=== PATIENT | male | born 1945 | race Caucasian/White ===

== ENCOUNTER 2017-06-08 07:30 | Day surgery (SDC) | payer BC ==
[2017-06-07 13:40] VITALS: BMI 29.5
[2017-06-08] MEDS: CIPROFLOXACIN 0.3% EYE DROPS 5 ML BOTTLE ONE ×3 (07:55→08:05)
[2017-06-08] MEDS: PHENYLEPHRINE 2.5% OPHTH SOLN 15 ML BOTTLE ONE ×3 (07:55→08:05)
[2017-06-08] MEDS: CYCLOPENTOLATE 2% OPHTH SOLN 2 ML BOTTLE ONE ×3 (07:55→08:05)
[2017-06-08] MEDS: TROPICAMIDE 1% OPHTH SOLN 15 ML BOTTLE ONE ×3 (07:55→08:05)
[2017-06-08] MEDS ORDERED: MIDAZOLAM HCL 2 MG/2 ML SINGLE DOSE VIAL ONE ×2 (08:45→09:10)
[2017-06-08 09:43] VITALS: TEMP 98.4
[2017-06-08 10:08] VITALS: BP 133/74; PULSE 74
[2017-06-08] MEDS ORDERED: ONDANSETRON 4 MG/2 ML VIAL IVPUSH PRN (15:48)
[2017-06-08] MEDS ORDERED: ACETAMINOPHEN 325 MG TABLET (FP) PO PRN (15:48)
[2017-06-08] MEDS ORDERED: LACTATED RINGERS SOLUTION 1,000 ML IV SCH (16:00)
== END 2017-06-08 10:10 | disposition home or self-care (01) ==
LOC: FASU 07:30
PROVIDERS: ATTEND Ophthalmology
PROC: 08RK3JZ Replacement of Left Lens with Synthetic Substitute, Percutaneous Approach (ICD-10-PCS; principal; 2017-06-08 09:11)
DX: H26.8 Other specified cataract (principal)

== ENCOUNTER 2018-04-21 06:58 | Day surgery (SDC) | payer BC ==
[2018-04-20 13:43] VITALS: BMI 30.4
[2018-04-21 08:47] VITALS: TEMP 97.7
[2018-04-21 09:54] VITALS: BP 127/76; PULSE 54
--- NOTE | 2018-04-24 17:48 | PATH ---
Surgical Pathology Report Patient Name: [facility]GR[facility]. Rec. #: [id number] /Age/Gender: 1945 (Age: 72) / M Account: [id number] Location: U-ENDOSCOPY Taken: 04/21/2018 Received: 04/21/2018 Reported: 04/24/2018 Physicians: Dior Pacheco M.D. Specimen(s) Received A: BX 2ND PORTION DUODENUM AND BULB B: BX ANTRUM AND GASTROENTEROSTOMY ANASTOMOSIS C: RIGHT COLON POLYP Clinical History Screening status post peptic ulcer, adenoma surveillance Postoperative diagnosis: Hiatal hernia, gastritis, diverticulosis, colon polyp Final Diagnosis A. DUODENUM, SECOND PORTION AND BULB, BIOPSY: DUODENAL MUCOSA WITHOUT SIGNIFICANT PATHOLOGIC FINDINGS. B. STOMACH, ANTRUM, GASTRIC ANASTOMOSIS, BIOPSY: GASTRIC ANTRAL AND BODY MUCOSA WITH MILD CHRONIC GASTRITIS. IMMUNOHISTOCHEMICAL STAIN FOR H. PYLORI IS NEGATIVE. C. COLON, RIGHT, POLYP, BIOPSY: TUBULAR ADENOMA. Electronically Signed Annette Delgado M.D. Gross Description A. Received in formalin, labeled "biopsy second portion of duodenum and bulb" are 5 haro, irregular portions of soft tissue ranging from 0.2-0.4 cm. in greatest dimension. The specimens are submitted in toto in one cassette. B. Received in formalin, labeled "biopsy antrum and gastroenteric anastamosis" are 3 haro, irregular portions of soft tissue ranging from 0.2-0.8 cm. in greatest dimension. The specimens are submitted in toto in one cassette. C. Received in formalin, labeled "biopsy right colon polyp" is a haro, irregular portion of soft tissue measuring 0.5 cm. in greatest dimension. The specimen is submitted in toto in one cassette. DL/04/21/2018 saudi/04/21/2018
== END 2018-04-21 09:54 | disposition home or self-care (01) ==
LOC: JASU-ENDO 06:58
PROVIDERS: ATTEND Internal Medicine Gastroenterology
PROC: 0DBK8ZX Excision of Ascending Colon, Via Natural or Artificial Opening Endoscopic, Diagnostic (ICD-10-PCS; principal; 2018-04-21 08:00)
DX: Z12.11 Encounter for screening for malignant neoplasm of colon (principal); D12.2 Benign neoplasm of ascending colon; K57.30 Diverticulosis of large intestine without perforation or abscess without bleeding; Z98.0 Intestinal bypass and anastomosis status; Z86.010 Personal history of colon polyps; R19.4 Change in bowel habit
CPT/HCPCS: 88305-TC; 88342-TC

== ENCOUNTER 2019-06-13 06:51 | Day surgery (SDC) | payer BC ==
[2019-06-08 13:43] VITALS: BMI 29.5
[2019-06-13] MEDS: TROPICAMIDE 1% OPHTH SOLN 15 ML BOTTLE ONE ×3 (07:30→07:40)
[2019-06-13] MEDS: PHENYLEPHRINE 2.5% OPHTH SOLN 15 ML BOTTLE ONE ×3 (07:30→07:40)
[2019-06-13] MEDS: CYCLOPENTOLATE 2% OPHTH SOLN 2 ML BOTTLE ONE ×3 (07:30→07:40)
[2019-06-13] MEDS: CIPROFLOXACIN 0.3% EYE DROPS 5 ML BOTTLE ONE ×3 (07:30→07:40)
[2019-06-13] MEDS ORDERED: BSS (NA/CA/MG/K) BALANCED SALT SOLUTION OPHTH SOLN 15 ML BOTTLE ONE (08:41)
[2019-06-13] MEDS ORDERED: TETRACAINE 0.5% OPHTH SOLN 2 ML BOTTLE ONE (08:41)
[2019-06-13] MEDS ORDERED: LIDOCAINE 1% P/F 10 MG/ML VIAL ONE (08:41)
[2019-06-13] MEDS ORDERED: CARBACHOL 0.01% INTRA-OCULAR 1.5 ML VIAL ONE (08:42)
[2019-06-13] MEDS ORDERED: NEO/POLYMYX B SULF/DEXAMETH OPHTHALMIC 5ML BOTTLE ONE (08:42)
[2019-06-13] MEDS ORDERED: MIDAZOLAM HCL 2 MG/2 ML SINGLE DOSE VIAL ONE ×2 (08:55→09:09)
[2019-06-13 09:34] VITALS: TEMP 97.7
[2019-06-13 09:56] VITALS: BP 137/94; PULSE 73
--- NOTE | 2019-06-13 11:00 | OP ---
DATE OF OPERATION: 06/13/2019 OPERATIVE PROCEDURE: Lens Phacoemulsification with Posterior Chamber Intraocular Lens Placement, Right Eye. PREOPERATIVE DIAGNOSIS: Visually Significant Cataract of Right Eye. POSTOPERATIVE DIAGNOSIS: Visually Significant Cataract of Right Eye. SURGEON: Harsh Suggs MD ANESTHESIA: MAC ANESTHESIOLOGIST: PROCEDURE: The patient was brought to the operating room and placed under monitored anesthesia care by Anesthesia. A drop of Tetracaine was then placed over the right eye. The patient was then prepped and draped in the usual sterile manner. A speculum was then placed over the right eye. The eye was then well irrigated with copious amounts of BSS (balanced salt solution). The operating microscope was then moved into position. A paracentesis was performed using a 15 degree blade. At this point 0.5 mL of 1% preservative free-lidocaine was injected into the anterior chamber. Amvisc plus was then injected into the anterior chamber. A clear corneal incision was then formed using a 2.2 mm keratome. A capsulorrhexis was then performed in a continuous circular fashion beginning with a cystotome completed with an Utratas forceps. Hydrodissection was then performed using BSS on a cannula. The phaco probe was then introduced through the corneal wound and the cataract was removed using the phaco chop technique. Approximately 3 seconds of absolute phaco time was used. The remaining cortex was then removed using irrigation and aspiration with an I/A probe. The capsule was then filled with regular Amvisc and the capsule was noted to be intact. A previously selected foldable posterior chamber intraocular lens was then injected into the capsule through the corneal wound using a lens injector. It was then dialed into position using a Sinskey hook. The Amvisc was then removed using irrigation and aspiration. Miostat was then injected through the paracentesis to constrict the pupil. The paracentesis and corneal wound were then hydrated and noted to be watertight. A drop of Maxitrol was then placed over the eye. The speculum was removed and clear shield was taped over the eye. The patient tolerated the procedure well and there were no surgical complications. The patient was asked to follow up in my office the next day. HARSH SUGSG M.D. [id number]
== END 2019-06-13 10:00 | disposition home or self-care (01) ==
LOC: FASU 06:51
PROVIDERS: ATTEND Ophthalmology
PROC: 08RJ3JZ Replacement of Right Lens with Synthetic Substitute, Percutaneous Approach (ICD-10-PCS; principal; 2019-06-13 09:04)
DX: H26.8 Other specified cataract (principal)

== ENCOUNTER 2021-11-29 09:21 | Emergency (ER) | payer OTHER, BC ==
[2021-11-29 09:29] VITALS: BP 141/92; PULSE 85; TEMP 97.8; BMI 28.5
== END 2021-11-29 09:47 | disposition home or self-care (01) ==
LOC: FER 09:21
DX: L51.9 Erythema multiforme, unspecified (principal)
CPT/HCPCS: 99281-25

== ENCOUNTER 2024-03-13 03:54 | Day surgery (SDC) | payer OTHER, BC ==
[2024-03-09 15:07] VITALS: BMI 27.4
[2024-03-13 09:26] VITALS: TEMP 97.5
[2024-03-13] MEDS ORDERED: PROPOFOL 20 ML ONE ×2 (11:00→11:03)
[2024-03-13] MEDS ORDERED: MIDAZOLAM HCL 2 MG/2 ML SINGLE DOSE VIAL ONE (11:00)
[2024-03-13] MEDS ORDERED: LIDOCAINE HCL/PF 2% SDV 5ML VIAL ONE (11:03)
[2024-03-13] MEDS: ceFAZolin SODIUM 1 GM VIAL IVPB ONE ×2 (11:24)
[2024-03-13] MEDS ORDERED: ELECTROLYTE-148 SOLN 1,000 ML IV SCH (12:00)
[2024-03-13] MEDS ORDERED: ONDANSETRON 4 MG/2 ML VIAL ONE (12:04)
[2024-03-13] MEDS ORDERED: DEXAMETHASONE SOD PHOSPHATE 4 MG/1 ML VIAL ONE (12:04)
[2024-03-13] MEDS ORDERED: ONDANSETRON 4 MG/2 ML VIAL IVPUSH PRN (12:08)
[2024-03-13] MEDS ORDERED: LACTATED RINGERS SOLUTION 1,000 ML IV SCH (12:15)
[2024-03-13] MEDS ORDERED: ACETAMINOPHEN INJECTION 100 ML ONE (12:42)
[2024-03-13] MEDS: ACETAMINOPHEN 1000 MG/100 ML BAG IVPB ONE (12:45)
[2024-03-13] MEDS: HYDROmorphone HCl 2 MG/ML VIAL IVPUSH PRN (13:04)
[2024-03-13] MEDS ORDERED: HYDROmorphone HCL CARPU-JECT 2 MG/1 ML DISP.SYRIN ONE (13:04)
[2024-03-13 14:04] VITALS: RESP 16
[2024-03-13 15:52] VITALS: BP 150/70; PULSE 65
== END 2024-03-13 15:30 | disposition home or self-care (01) ==
LOC: JASU-SURG 03:54
PROVIDERS: ATTEND Urology
PROC: 0TBB8ZZ Excision of Bladder, Via Natural or Artificial Opening Endoscopic (ICD-10-PCS; principal; 2024-03-13 11:00)
DX: C67.9 Malignant neoplasm of bladder, unspecified (principal)
CPT/HCPCS: 88307-TC; 94760; J0131